=== PATIENT | female | born 1960 | race Caucasian/White ===

== ENCOUNTER 2022-04-09 04:49 | Emergency (ER) | payer OTHER ==
[2022-04-09 05:08] VITALS: BP 115/75; PULSE 81; TEMP 97.7; BMI 26.5
[2022-04-09] MEDS ORDERED: ACETAMINOPHEN 500 MG TABLET (FP) PO ONE (05:23)
[2022-04-09] MEDS ORDERED: ACETAMINOPHEN 500 MG TABLET (FP) ONE (06:17)
[2022-04-09] MEDS ORDERED: OFLOXACIN 0.3% OTIC SOLUTION 5 ML BOTTLE AS ONE (06:29)
== END 2022-04-09 06:40 | disposition home or self-care (01) ==
LOC: JER 04:49
DX: H70.92 Unspecified mastoiditis, left ear (principal); H71.92 Unspecified cholesteatoma, left ear
CPT/HCPCS: 70450-TC; 99284-25

== ENCOUNTER 2022-10-26 09:58 | Emergency (ER) | payer OTHER ==
[2022-10-26 10:08] VITALS: BP 133/65; PULSE 66; RESP 18; TEMP 97.9; BMI 32.9
== END 2022-10-26 11:30 | disposition home or self-care (01) ==
LOC: JER 09:58 → JERFT 09:58
DX: H92.01 Otalgia, right ear (principal)
CPT/HCPCS: 99281-25

== ENCOUNTER 2023-10-16 11:27 | Emergency (ER) | payer OTHER ==
[2023-10-16 11:51] VITALS: RESP 18; TEMP 98.3; BMI 27.5
[2023-10-16] MEDS ORDERED: ACETAMINOPHEN 500 MG TABLET (FP) PO ONE (14:06)
[2023-10-16] MEDS ORDERED: ACETAMINOPHEN 325 MG TABLET (FP) ONE (14:29)
[2023-10-16 14:56] LABS: BASO % 0.2 % (0-2.0); EOS % 0.8 % (0-4.5); HEMATOCRIT 30.4 % (32.4-45.2); HEMOGLOBIN 9.8 GM/dL (10.7-15.3); LYMPH % 15.6 % (8-40); MCH 26.8 pg (25.7-33.7); MCHC 32.3 g/dl (32.0-36.0); MEAN PLT VOLUME 7.8 fl (7.5-11.1); MONO % 10.5 % (3.8-10.2); NEUT % 72.9 % (42.8-82.8); PLATELET COUNT 437 10^3/uL (134-434); RBC 3.66 M/mm3 (3.60-5.2); RDW 14.6 % (11.6-15.6); WHITE BLOOD COUNT 12.7 K/mm3 (4.0-10.0)
[2023-10-16 15:23] LABS: POTASSIUM 4.2 mmol/L (3.5-5.1)
[2023-10-16 15:24] LABS: CALCIUM 9.5 mg/dL (8.5-10.1)
[2023-10-16 15:25] LABS: ALBUMIN 2.9 g/dl (3.4-5.0); BLOOD UREA NITROGEN 16.4 mg/dL (7-18); MAGNESIUM 1.9 mg/dL (1.8-2.4)
[2023-10-16 15:28] LABS: CREATININE 0.6 mg/dL (0.55-1.3)
[2023-10-16 15:29] LABS: BILIRUBIN,TOTAL 0.5 mg/dL (0.2-1)
[2023-10-16 15:30] LABS: TOT PROT 7.4 g/dl (6.4-8.2)
[2023-10-16] MEDS ORDERED: KETOROLAC TROMETHAMINE 15 MG/ML VIAL IVPUSH ONE (17:55)
[2023-10-16] MEDS ORDERED: KETOROLAC TROMETHAMINE 15 MG/ML VIAL ONE (17:55)
[2023-10-16] MEDS ORDERED: GABAPENTIN 300 MG CAPSULE PO ONE (18:47)
[2023-10-16 18:58] VITALS: BP 130/85; PULSE 75
[2023-10-16] MEDS ORDERED: GABAPENTIN 300 MG CAPSULE ONE (19:02)
== END 2023-10-17 02:48 | disposition home or self-care (01) ==
LOC: JER 11:27
PROC: 3E0333Z Introduction of Anti-inflammatory into Peripheral Vein, Percutaneous Approach (ICD-10-PCS; principal; 2023-10-16)
DX: M79.604 Pain in right leg (principal); G89.29 Other chronic pain
CPT/HCPCS: 36415; 80053; 83735; 85025; 99284-25

== ENCOUNTER 2024-10-26 14:00 | Observation (INO) | payer OTHER ==
[2024-10-26] MEDS ORDERED: ACETAMINOPHEN INJECTION 100 ML ONE (15:10)
[2024-10-26] MEDS: ACETAMINOPHEN 1000 MG/100 ML BAG IVPB ONE (15:16)
[2024-10-26 15:39] LABS: BASO % 0.2 % (0-2.0); EOS % 0.8 % (0-4.5); HEMATOCRIT 30.4 % (32.4-45.2); HEMOGLOBIN 9.7 GM/dL (10.7-15.3); LYMPH % 7.4 % (8-40); MCHC 31.8 g/dl (32.0-36.0); MEAN CELL VOLUME 72.3 fl (80-96); MEAN PLT VOLUME 7.7 fl (7.5-11.1); NEUT % 80.6 % (42.8-82.8); PLATELET COUNT 465 10^3/uL (134-434); WHITE BLOOD COUNT 10.8 K/mm3 (4.0-10.0)
[2024-10-26 16:03] LABS: POTASSIUM 3.9 mmol/L (3.5-5.1)
[2024-10-26 16:05] LABS: ALBUMIN 2.8 g/dl (3.4-5.0); CALCIUM 9.6 mg/dL (8.5-10.1); MAGNESIUM 1.9 mg/dL (1.8-2.4)
[2024-10-26 16:06] LABS: BLOOD UREA NITROGEN 11.5 mg/dL (7-18)
[2024-10-26 16:08] LABS: CREATININE 0.8 mg/dL (0.55-1.3)
[2024-10-26 16:10] LABS: BILIRUBIN,TOTAL 0.6 mg/dL (0.2-1); TOT PROT 8.2 g/dl (6.4-8.2)
[2024-10-26 16:14] LABS: N-TERMINAL BNP 138.6 pg/ml (5-125)
[2024-10-26 16:58] LABS: HIV INTERPRETATION NEGATIVE (NEGATIVE)
[2024-10-26 18:48] LABS: HYALINE CASTS 1.92 /uL (0-3.1); URINE APPEARANCE TURBID; URINE BACTERIA 3975.5 /uL (0-1359); URINE BILIRUBIN NEGATIVE (NEGATIVE); URINE COLOR DK YELLOW; URINE GLUCOSE (UA) NEGATIVE (NEGATIVE); URINE KETONE 15 mg/dl (NEGATIVE); URINE LEUK ESTERASE NEGATIVE (NEGATIVE); URINE NITRITE NEGATIVE (NEGATIVE); URINE PROTEIN 30 (NEGATIVE); URINE RBC 24.2 /uL (0-23.9); URINE WBC 42.5 /uL (0-25.8)
[2024-10-26] MEDS: LACTATED RINGERS SOLUTION 1000 ML INFUS.BAG IV ONE (18:56)
[2024-10-27 07:28] LABS: BASO % 0.6 % (0-2.0); EOS % 2.3 % (0-4.5); HEMATOCRIT 26.4 % (32.4-45.2); HEMOGLOBIN 8.4 GM/dL (10.7-15.3); LYMPH % 23.6 % (8-40); MCH 23.2 pg (25.7-33.7); MCHC 31.8 g/dl (32.0-36.0); MEAN CELL VOLUME 73.1 fl (80-96); MEAN PLT VOLUME 8.2 fl (7.5-11.1); MONO % 11.3 % (3.8-10.2); NEUT % 62.2 % (42.8-82.8); PLATELET COUNT 426 10^3/uL (134-434); RBC 3.62 M/mm3 (3.60-5.2); RDW 17.3 % (11.6-15.6); WHITE BLOOD COUNT 8.6 K/mm3 (4.0-10.0)
[2024-10-27 07:55] LABS: CHOLESTEROL 120 mg/dL (50-200)
[2024-10-27 07:56] LABS: IRON SERUM 22 ug/dL (50-175); LDL CHOLESTEROL (ONLY SJRH) 67 mg/dL (5-100)
[2024-10-27 07:57] LABS: TOTAL IRON BINDING CAPACITY 209 ug/dL (250-450)
[2024-10-27 07:58] LABS: HDL CHOLESTEROL 39 mg/dL (40-60)
[2024-10-27 08:00] LABS: ALBUMIN 2.6 g/dl (3.4-5.0); CALCIUM 9.2 mg/dL (8.5-10.1); MAGNESIUM 1.9 mg/dL (1.8-2.4)
[2024-10-27 08:01] LABS: BLOOD UREA NITROGEN 9.5 mg/dL (7-18)
[2024-10-27 08:03] LABS: CREATININE 0.5 mg/dL (0.55-1.3); PHOSPHOROUS 3.3 mg/dL (2.5-4.9)
[2024-10-27 08:05] LABS: BILIRUBIN,TOTAL 0.5 mg/dL (0.2-1); TOT PROT 7.5 g/dl (6.4-8.2)
[2024-10-27] MEDS ORDERED: ACETAMINOPHEN 325 MG TABLET (FP) ONE (08:47)
[2024-10-27] MEDS: ACETAMINOPHEN 325 MG TABLET (FP) PO PRN (09:00)
[2024-10-27] MEDS ORDERED: ENOXAPARIN NA (PORCINE) 40 MG/0.4 ML DISP.SYRIN SQ ONE (09:26)
[2024-10-27] MEDS: ENOXAPARIN NA (PORCINE) 40 MG/0.4 ML DISP.SYRIN SQ SCH (09:47)
[2024-10-27] MEDS: LIDOCAINE PATCH REMOVAL MC SCH (23:12)
[2024-10-27 23:54] VITALS: BMI 25.6
[2024-10-28] MEDS: LIDOCAINE 5% TOPICAL PATCH TP SCH (10:56)
[2024-10-29] MEDS: PRAMIPEXOLE DIHYDROCHLORIDE 0.25 MG TABLET PO SCH (00:39)
[2024-10-29 07:56] LABS: HEMATOCRIT 25.6 % (32.4-45.2); MCH 23.2 pg (25.7-33.7); MCHC 31.5 g/dl (32.0-36.0); MEAN CELL VOLUME 73.7 fl (80-96); MEAN PLT VOLUME 7.9 fl (7.5-11.1); PLATELET COUNT 431 10^3/uL (134-434); RBC 3.47 M/mm3 (3.60-5.2); RDW 17.1 % (11.6-15.6); WHITE BLOOD COUNT 9.5 K/mm3 (4.0-10.0)
[2024-10-29 08:16] LABS: POTASSIUM 4.4 mmol/L (3.5-5.1)
[2024-10-29 08:20] LABS: ALBUMIN 2.2 g/dl (3.4-5.0); BLOOD UREA NITROGEN 13.7 mg/dL (7-18); MAGNESIUM 1.9 mg/dL (1.8-2.4)
[2024-10-29 08:23] LABS: CREATININE 0.5 mg/dL (0.55-1.3); PHOSPHOROUS 2.4 mg/dL (2.5-4.9)
[2024-10-29 08:24] LABS: BILIRUBIN,TOTAL 0.3 mg/dL (0.2-1); TOT PROT 6.9 g/dl (6.4-8.2)
[2024-10-30 07:57] LABS: HEMATOCRIT 25.5 % (32.4-45.2); HEMOGLOBIN 8.1 GM/dL (10.7-15.3); MCH 23.1 pg (25.7-33.7); MCHC 31.8 g/dl (32.0-36.0); MEAN CELL VOLUME 72.8 fl (80-96); MEAN PLT VOLUME 7.6 fl (7.5-11.1); PLATELET COUNT 416 10^3/uL (134-434); RDW 17.3 % (11.6-15.6); WHITE BLOOD COUNT 8.9 K/mm3 (4.0-10.0)
[2024-10-30 08:15] LABS: POTASSIUM 4.6 mmol/L (3.5-5.1)
[2024-10-30 08:20] LABS: ALBUMIN 2.2 g/dl (3.4-5.0)
[2024-10-30 08:21] LABS: BLOOD UREA NITROGEN 10.2 mg/dL (7-18); CALCIUM 9.1 mg/dL (8.5-10.1); MAGNESIUM 1.7 mg/dL (1.8-2.4)
[2024-10-30 08:22] LABS: CREATININE 0.4 mg/dL (0.55-1.3)
[2024-10-30 08:24] LABS: PHOSPHOROUS 3.2 mg/dL (2.5-4.9)
[2024-10-30 08:25] LABS: BILIRUBIN,TOTAL 0.3 mg/dL (0.2-1)
[2024-10-30] MEDS: LIDOCAINE 5% TOPICAL PATCH TP SCH (10:21)
[2024-10-30] MEDS: MAGNESIUM SULFATE IN WATER 2 GM/50 ML IVPB IVPB ONE (10:21)
[2024-10-30] MEDS: ACETAMINOPHEN 1000 MG/100 ML BAG IVPB PRN (10:59)
[2024-10-30] MEDS: predniSONE 20 MG TABLET (UD) PO SCH (21:41)
[2024-10-30] MEDS: PRAMIPEXOLE DIHYDROCHLORIDE 0.25 MG TABLET PO SCH (21:41)
[2024-10-30] MEDS: LIDOCAINE PATCH REMOVAL MC SCH (21:42)
[2024-10-31 08:53] LABS: URIC ACID 2.1 mg/dL (2.6-7.2)
[2024-10-31] MEDS: ACETAMINOPHEN 325 MG TABLET (FP) PO PRN (14:15)
[2024-11-01 08:58] LABS: BASO % 0.2 % (0-2.0); HEMATOCRIT 24.3 % (32.4-45.2); HEMOGLOBIN 7.9 GM/dL (10.7-15.3); MCH 23.5 pg (25.7-33.7); MCHC 32.5 g/dl (32.0-36.0); MEAN CELL VOLUME 72.4 fl (80-96); MEAN PLT VOLUME 7.7 fl (7.5-11.1); MONO % 7.2 % (3.8-10.2); NEUT % 80.6 % (42.8-82.8); PLATELET COUNT 546 10^3/uL (134-434); RBC 3.35 M/mm3 (3.60-5.2); RDW 16.9 % (11.6-15.6)
[2024-11-01 09:08] LABS: POTASSIUM 4.7 mmol/L (3.5-5.1)
[2024-11-01 09:23] LABS: BLOOD UREA NITROGEN 18.3 mg/dL (7-18); CALCIUM 9.2 mg/dL (8.5-10.1)
[2024-11-01 09:27] LABS: CREATININE 0.5 mg/dL (0.55-1.3)
[2024-11-01] MEDS: MINERAL OIL/PET HY-PHL TOPICAL OINTMENT 454 GM JAR TP ONE (21:46)
[2024-11-01] MEDS: SENNOSIDES 8.8 MG/5 ML SYRUP PO SCH (21:46)
[2024-11-02 08:20] LABS: BASO % 0.2 % (0-2.0); EOS % 0.2 % (0-4.5); HEMATOCRIT 27.2 % (32.4-45.2); HEMOGLOBIN 8.6 GM/dL (10.7-15.3); LYMPH % 27.3 % (8-40); MCH 22.9 pg (25.7-33.7); MCHC 31.5 g/dl (32.0-36.0); MEAN CELL VOLUME 72.5 fl (80-96); MEAN PLT VOLUME 7.4 fl (7.5-11.1); MONO % 7.7 % (3.8-10.2); NEUT % 64.6 % (42.8-82.8); PLATELET COUNT 564 10^3/uL (134-434); RBC 3.76 M/mm3 (3.60-5.2); RDW 17.2 % (11.6-15.6); WHITE BLOOD COUNT 15.7 K/mm3 (4.0-10.0)
[2024-11-02 08:55] LABS: POTASSIUM 4.6 mmol/L (3.5-5.1)
[2024-11-02 09:06] LABS: ALBUMIN 2.4 g/dl (3.4-5.0); CALCIUM 9.2 mg/dL (8.5-10.1)
[2024-11-02 09:07] LABS: BLOOD UREA NITROGEN 20.3 mg/dL (7-18); MAGNESIUM 2.2 mg/dL (1.8-2.4)
[2024-11-02 09:09] LABS: CREATININE 0.5 mg/dL (0.55-1.3)
[2024-11-02 09:10] LABS: BILIRUBIN,TOTAL 0.2 mg/dL (0.2-1)
[2024-11-02 09:11] LABS: TOT PROT 7.1 g/dl (6.4-8.2)
[2024-11-02 10:57] VITALS: BP 115/55; PULSE 95; RESP 17; TEMP 98.2
[2024-11-03 06:09] LABS: ANTI-DNAse B 440 U/mL (0-120)
== END 2024-11-02 13:58 ==
LOC: JER 14:00 → JERBED 17:17 → J4W 10-27 22:32
PROVIDERS: ADMIT Internal Medicine; ATTEND Internal Medicine
PROC: 3E033NZ Introduction of Analgesics, Hypnotics, Sedatives into Peripheral Vein, Percutaneous Approach (ICD-10-PCS; principal; 2024-10-26)
PROC: 3E033GC Introduction of Other Therapeutic Substance into Peripheral Vein, Percutaneous Approach (ICD-10-PCS; 2024-10-26)
PROC: 3E0337Z Introduction of Electrolytic and Water Balance Substance into Peripheral Vein, Percutaneous Approach (ICD-10-PCS; 2024-10-26)
PROC: 3E013GC Introduction of Other Therapeutic Substance into Subcutaneous Tissue, Percutaneous Approach (ICD-10-PCS; 2024-10-26)
DX: Z04.3 Encounter for examination and observation following other accident (principal); R79.82 Elevated C-reactive protein (CRP); G40.909 Epilepsy, unspecified, not intractable, without status epilepticus; R00.0 Tachycardia, unspecified; D50.8 Other iron deficiency anemias; R29.6 Repeated falls; R29.2 Abnormal reflex; M17.0 Bilateral primary osteoarthritis of knee; M25.561 Pain in right knee; M25.572 Pain in left ankle and joints of left foot; G25.81 Restless legs syndrome; M06.9 Rheumatoid arthritis, unspecified; Z74.01 Bed confinement status
CPT/HCPCS: 0241U-QW; 36415; 70450-TC; 71045-TC-FY; 72125-TC; 73521-TC-FY; 73562-TC-LT-FY; 73562-TC-RT-FY; 80048; 80053; 80061; 81003; 82550; 82607; 82728; 82962; 83540; 83550; 83735; 83880; 84100; 84443; 84466; 84484; 84550; 85025; 85027; 85045; 85651; 86038; 86140; 86200; 86215; 86235; 86431; 86803; 87086; 87186; 87389; 93005; 93010; 93306-TC; 95816; 96365; 96372; 96375; 96376; 97116-GP; 97163-GP; 99285-25; G0378; J0131

== ENCOUNTER 2025-05-07 19:13 | Emergency (ER) | payer OTHER ==
[2025-05-07 19:59] VITALS: BMI 29.2
[2025-05-07] MEDS ORDERED: FAMOTIDINE 20 MG/50 ML IVPB 20 MG/50 ML MG IVPB ONE (21:03)
[2025-05-07] MEDS ORDERED: ACETAMINOPHEN INJECTION 100 ML ONE (21:03)
[2025-05-07] MEDS ORDERED: MAG HYDROX/AL HYDROX/SIMETH 30 ML UNIT-DOSE CUP ONE (21:03)
[2025-05-07] MEDS: MAG HYDROX/AL HYDROX/SIMETH 30 ML UNIT-DOSE CUP PO ONE (21:10)
[2025-05-07] MEDS: FAMOTIDINE 20 MG/50 ML IVPB 20 MG/50 ML MG IVPB ONE (21:10)
[2025-05-07] MEDS: ACETAMINOPHEN 1000 MG/100 ML BAG IVPB ONE (21:10)
[2025-05-07 21:19] LABS: HEMATOCRIT 32.4 % (34.1-44.9); HEMOGLOBIN 10.1 g/dL (11.2-15.7); MCHC 31.2 g/dl (32.2-35.5); MEAN CELL VOLUME 90.8 fl (79.4-94.8); MEAN PLT VOLUME 9.4 fl (9.4-12.3); PLATELET COUNT 324 x10^3/uL (182-369); RDW 12.6 % (12.4-16.4)
[2025-05-07 21:24] LABS: INR 1.14 (0.83-1.09); PROTHROMBIN TIME (PATIENT) 12.5 SEC (9.7-13.0)
[2025-05-07 21:44] LABS: POTASSIUM 4.2 mmol/L (3.5-5.1)
[2025-05-07 21:47] LABS: CALCIUM 9.9 mg/dL (8.5-10.1)
[2025-05-07 21:48] LABS: BLOOD UREA NITROGEN 14.8 mg/dL (7-18)
[2025-05-07 21:51] LABS: CREATININE 0.9 mg/dL (0.55-1.3)
[2025-05-07 21:52] LABS: BILIRUBIN,TOTAL 0.4 mg/dL (0.2-1); TOT PROT 7.7 g/dl (6.4-8.2)
[2025-05-07] MEDS: ALBUTEROL SO4 2.5/IPRATROPIUM 0.5 INH SOL 3 ML VIAL.NEB. NEB ONE (22:15)
[2025-05-07] MEDS ORDERED: ALBUTEROL SO4 2.5/IPRATROPIUM 0.5 INH SOL 3 ML VIAL.NEB. NEB ONE (22:58)
[2025-05-08 05:00] VITALS: RESP 18
[2025-05-08 06:13] VITALS: BP 108/56; PULSE 64; TEMP 98
== END 2025-05-08 06:35 ==
LOC: JER 19:13
PROC: 3E033GC Introduction of Other Therapeutic Substance into Peripheral Vein, Percutaneous Approach (ICD-10-PCS; principal; 2025-05-07)
PROC: 3E033NZ Introduction of Analgesics, Hypnotics, Sedatives into Peripheral Vein, Percutaneous Approach (ICD-10-PCS; 2025-05-07)
PROC: 3E0F7GC Introduction of Other Therapeutic Substance into Respiratory Tract, Via Natural or Artificial Opening (ICD-10-PCS; 2025-05-07)
DX: R07.89 Other chest pain (principal); R06.02 Shortness of breath
CPT/HCPCS: 36415; 71045-TC-FY; 80053; 83690; 84484; 85027; 85610; 93005; 93010; 99285-25

== ENCOUNTER 2025-08-02 01:09 | Emergency (ER) | payer OTHER ==
[2025-08-02 01:20] VITALS: RESP 17; BMI 32.0
[2025-08-02] MEDS ORDERED: KETOROLAC TROMETHAMINE 30 MG/1 ML VIAL ONE (02:08)
[2025-08-02] MEDS ORDERED: LIDOCAINE 5% TOPICAL PATCH ONE (02:08)
[2025-08-02] MEDS: LIDOCAINE 5% TOPICAL PATCH TP ONE (02:20)
[2025-08-02] MEDS: KETOROLAC TROMETHAMINE 30 MG/1 ML VIAL IM ONE (02:20)
[2025-08-02 04:21] VITALS: BP 112/64; PULSE 68; TEMP 97.9
[2025-08-02] MEDS ORDERED: LIDOCAINE PATCH REMOVAL MC ONE (14:00)
== END 2025-08-02 04:21 | disposition home or self-care (01) ==
LOC: JER 01:09
PROC: 3E0233Z Introduction of Anti-inflammatory into Muscle, Percutaneous Approach (ICD-10-PCS; principal; 2025-08-02)
DX: M25.561 Pain in right knee (principal); M25.562 Pain in left knee; G89.29 Other chronic pain; M25.461 Effusion, right knee; M25.462 Effusion, left knee
CPT/HCPCS: 73560-TC-LT-FY; 73560-TC-RT-FY; 99284-25